=== PATIENT | male | born 1975 | race Caucasian/White ===

== ENCOUNTER 2017-01-26 03:05 | Emergency (ER) | payer BC ==
[~2017-01-26] VITALS: Ht 188 cm; Wt 76.0 kg
[2017-01-26 03:10] VITALS: Ht 188 cm; Wt 76.0 kg
[2017-01-26] MEDS ORDERED: LIDOCAINE 1%/EPI 30 ML INJ INJ STA (03:17)
--- NOTE | 2017-01-26 03:24 | ERD ---
ER Documentation Chief Complaint Chief Complaint bib self, cc: right forearm laceration s/p fall with knife in hand HPI 41-year-old male brought into the emergency department for a laceration on his right volar forearm status post ground level fall with a knife in his hand. Patient denies suicidal ideation, homicidal ideation. States that bleeding is controlled since he put coffee ground in there. ROS All systems reviewed and are negative except as per history of present illness. Medications Home Meds Active Scripts Cephalexin* (Keflex*) 500 Mg Capsule, 500 MG PO QID for 5 Days, CAP Prov:KARLIE BUTTS PA-C 01/26/17 Reported Medications [None] No Conflict Check 03/05/11 Allergies Allergies: Coded Allergies: No Known Drug Allergies (Verified Allergy, 02/27/13) Uncoded Allergies: NONE (Allergy, 03/05/11) PMhx/Soc History of Surgery: No Anesthesia Reaction: No Hx Neurological Disorder: No Hx Respiratory Disorders: No Hx Cardiac Disorders: No Hx Psychiatric Problems: No Hx Miscellaneous Medical Probl: No Hx Alcohol Use: No Hx Substance Use: No Hx Tobacco Use: No Physical Exam Vitals Vital Signs Date Time Temp Pulse Resp B/P Pulse Ox O2 Delivery O2 Flow Rate FiO2 01/26/17 03:10 98.5 105 19 115/73 100 Physical Exam General: WD/WN, in no apparent distress, non-toxic appearing HENT: NC/AT Eyes: Conjunctiva normal Neck: Supple Pulm: Normal labored breathing CV: Good capillary refill GI: Non-distended, no guarding Back: No masses Ext: No clubbing, cyanosis, or edema Neuro: Moves on all fours, no neuro deficits, sensation intact Skin: []cm laceration Psych: Normal mood Results 24 hrs Current Medications Medications (Trade) Dose Ordered Sig/Jack Route PRN Reason Start Time Stop Time Status Last Admin Dose Admin Lidocaine/ Epinephrine (Xylocaine 1%/ Epi (Pf)) 30 ml ONCE STAT INJ 01/26/17 03:17 01/26/17 03:18 DC Diphtheria/ Tetanus/Acell Pertussis (Adacel) 0.5 ml ONCE ONCE IM* 01/26/17 03:30 01/26/17 03:31 DC 01/26/17 03:24 Procedures/MDM : 41-year-old male patient presents to the ER with a superficial laceration on right volar forearm. I had a low suspicion for FB, nerve/tendon/arterial injury, suicidal ideation. In the ED, patient was given TDAP and prepared for wound closure, procedure below. Discussed suture removal in 7-10 days. 2 day wound check. I have given him keflex for prophylaxis since he put coffee grinds in his wounds. neurovascularly intact and hemodynamically stable to be discharged home PROCEDURE NOTE: Consent was obtained. Patient was positioned appropriately. Copious amount of 1 L normal saline was used for irrigation. Wound was cleansed with betaiodine. Approximately 5 cc of lidocaine with epinephrine was used as a local anesthetic. Patient was sterile draped with wound exposed. Wound was closed with good approximation with 10 x 3-0 prolene simple interrupted sutures. Procedure tolerated without complications. Wound dressed with bacitracin and sterile guaze. Departure Diagnosis: Primary Impression: Laceration Condition: Stable KARLIE BUTTS PA-C Jan 26, 2017 03:24
[2017-01-26] MEDS ORDERED: DIPHTH/TET/ACEL PERTUSS (ADULT) 0.5 ML VIAL IM* ONE (03:30)
[2017-01-26] MEDS ORDERED: CEPH-443 PO (04:15)
== END 2017-01-26 04:20 | disposition home or self-care (01) ==
LOC: FTE 03:05
DX: S51.811A Laceration without foreign body of right forearm, initial encounter (principal); W26.0XXA Contact with knife, initial encounter; Y92.9 Unspecified place or not applicable; Z23 Encounter for immunization
CPT/HCPCS: 12001; 90471; 90715; Z7502; Z7610

== ENCOUNTER 2017-02-09 08:54 | Emergency (ER) | payer BC ==
[~2017-02-09] VITALS: Wt 54.5 kg
[~2017-02-09 08:54] MED LIST: CEPH-443 PO
[2017-02-09 09:51] LABS: BASOPHILS % 0.5 % (0.0-2.0); EOSINOPHILS # 0.1 10^3/ul (0.0-0.5); EOSINOPHILS % 1.1 % (0.0-7.0); HEMATOCRIT 43.8 % (42.0-52.0); HEMOGLOBIN 14.8 g/dl (14.0-18.0); LYMPHOCYTES % 38.5 % (15.0-51.0); MEAN CORPUSCULAR HGB CONC 33.8 g/dl (32.0-37.0); MEAN CORPUSCULAR VOLUME 88.7 fl (82.0-101.0); MEAN PLATELET VOLUME 9.6 fl (7.4-10.4); MONOCYTE # 0.7 10^3/ul (0.3-0.9); MONOCYTES % 8.5 % (0.0-11.0); NEUTROPHILS % 51.1 % (39.0-77.0); PLATELET COUNT 216 10^3/UL (140-415); RED BLOOD COUNT 4.94 10^6/ul (4.70-6.10); RED CELL DISTRIBUTION WIDTH 13.1 % (11.5-14.5); WHITE BLOOD COUNT 7.9 10^3/ul (4.8-10.8)
--- NOTE | 2017-02-09 10:01 | RADRPT ---
PROCEDURE: XR Chest. CLINICAL INDICATION: Chest pain. TECHNIQUE: Single frontal view of the chest was obtained. COMPARISON: None FINDINGS: Metallic snaps are identified projecting across the chest. There is a dextroscoliosis at the thorac olumbar junction. The heart is enlarged. The cardiomediastinal silhouette and hilar structures are normal. The pulmonary vasculature is normal. There is a left-sided aorta. The lungs are clear. Ther e is bilateral apical pleural scarring. The costophrenic angles are normal. IMPRESSION: 1. Bilateral apical pleural scarring is identified may be the result of a prior inflammatory process such as TB. 2. Cardiomegaly. 3. Dextroscoliosis of the lower thoracic spine. 4. No evidence of active cardiopulmonary disease. RPTAT:AAJJ Physician Carlito Date Time Electronically viewed and signed by Rudy Rooney Physician on 02/09/2017 10:01 REBECCA/
[2017-02-09 10:11] LABS: ANION GAP 15 (8-16); BLOOD UREA NITROGEN 7 mg/dl (7-20); CALCIUM 9.4 mg/dl (8.4-10.2); CARBON DIOXIDE 26 mmol/L (21-31); CHLORIDE 105 mmol/L (97-110); CREATININE 0.77 mg/dl (0.61-1.24); GLUCOSE 88 mg/dl (70-220); INR 0.92; POTASSIUM 4.3 mmol/L (3.5-5.1); PROTIME 12.4 Sec (12.2-14.2); SODIUM 142 mmol/L (135-144)
[2017-02-09 10:23] LABS: B-TYPE NATRIURETIC PEPTIDE 60 PG/ML (0-125)
[2017-02-09 10:25] LABS: TROPONIN-I < 0.012 ng/ml (0.00-0.12)
[2017-02-09] MEDS ORDERED: ASPI81TA3 PO (11:23)
--- NOTE | 2017-02-09 12:33 | ERD ---
ER Documentation Chief Complaint Chief Complaint suture removal HPI 41-year-old male patient with no significant past medical history presents to the ED for suture removal and chest pain that has been going on for 1 week. Patient reports that he accidentally cut his right arm with a knife and the sutures in place since January [address] Xiao sent him here for his chest pain for further evaluation and treatment. States that the pain is worse with movement and twisting. Denies any trauma. Denies any abdominal pain, nausea, vomiting, diarrhea, wheezing, shortness of breath, cough , fever, chills, increased redness, increased swelling. ROS All systems reviewed and are negative except as per history of present illness. Medications Home Meds Active Scripts Aspirin* (Aspirin* Chew) 81 Mg Tab.chew, 81 MG PO DAILY, #30 TAB.CHEW Prov:JEFFREY MCNEILL PA-C 02/09/17 Cephalexin* (Keflex*) 500 Mg Capsule, 500 MG PO QID for 5 Days, CAP Prov:KARLIE BUTTS PA-C 01/26/17 Reported Medications [None] No Conflict Check 03/05/11 Allergies Allergies: Coded Allergies: No Known Drug Allergies (Verified Allergy, 02/27/13) Uncoded Allergies: NONE (Allergy, 03/05/11) PMhx/Soc History of Surgery: No Anesthesia Reaction: No Hx Neurological Disorder: No Hx Respiratory Disorders: No Hx Cardiac Disorders: No Hx Psychiatric Problems: No Hx Miscellaneous Medical Probl: No Hx Alcohol Use: Yes (occassional) Hx Substance Use: No Hx Tobacco Use: No Smoking Status: Never smoker Physical Exam Vitals Vital Signs Date Time Temp Pulse Resp B/P Pulse Ox O2 Delivery O2 Flow Rate FiO2 02/09/17 08:59 97.1 60 20 118/65 100 Physical Exam Const: [id number], well-nourished. In no acute distress. Head: Atraumatic, normocephalic Eyes: Normal Conjunctiva without injection. No purulent discharge. PERRL. EOMI ENT: Normal external ear. Ear canal without erythema. Tympanic membrane pearly pelayo without effusion or bulging. Nasal canal clear with normal turbinates. Moist oropharynx without tonsillar exudates. Non-erythematous pharynx. Uvula midline. No drooling. No trismus. Neck: Full range of motion. No meningismus. No cervical lymphadenopathy. Resp: Clear to auscultation bilaterally. No wheezing, rhonchi, rales, or crackles. No accessory muscle use. No retractions. Cardio: Regular rate and rhythm. No murmurs, rubs or gallops. Abd: Soft, non tender, non distended. Normal bowel sounds. No palpable masses. No rebound tenderness. No guarding. Skin: No petechiae or rashes. 7 cm linear horizontal laceration noted on the volar aspect of patient's right forearm with no erythema or edema. 10 sutures noted keeping laceration intact. No signs of dehiscence. No fluctuance or induration. No erythema or purulent discharge. Full range of motion of the bilateral wrists and DIP, PIP, MCP joints. Back: No midline tenderness. No CVA tenderness. Ext: No cyanosis, or edema. Neur: Awake and alert. Psych: Normal Mood and Affect Result Diagram: 02/09/1738 02/09/1738 Results 24 hrs Laboratory Tests Test 02/09/17 09:38 White Blood Count 7.910^3/ul Red Blood Count 4.9410^6/ul Hemoglobin 14.8g/dl Hematocrit 43.8% Mean Corpuscular Volume 88.7fl Mean Corpuscular Hemoglobin 30.0pg Mean Corpuscular Hemoglobin Concent 33.8g/dl Red Cell Distribution Width 13.1% Platelet Count 19911^3/UL Mean Platelet Volume 9.6fl Neutrophils % 51.1% Lymphocytes % 38.5% Monocytes % 8.5% Eosinophils % 1.1% Basophils % 0.5% Nucleated Red Blood Cells % 0.0/100WBC Neutrophils # 4.010^3/ul Lymphocytes # 3.010^3/ul Monocytes # 0.710^3/ul Eosinophils # 0.110^3/ul Basophils # 0.010^3/ul Nucleated Red Blood Cells # 0.010^3/ul Prothrombin Time 12.4Sec Prothrombin Time Ratio 1.0 INR International Normalized Ratio 0.92 Activated Partial Thromboplast Time 30.9Sec Sodium Level 142mmol/L Potassium Level 4.3mmol/L Chloride Level 105mmol/L Carbon Dioxide Level 26mmol/L Anion Gap 15 Blood Urea Nitrogen 7mg/dl Creatinine 0.77mg/dl Glucose Level 88mg/dl Calcium Level 9.4mg/dl Troponin I < 0.012ng/ml B-Type Natriuretic Peptide 60PG/ML Procedures/MDM 41 year-old male patient with no significant past medical history presents to the ED complaining of chest pain and a suture removal. Patient is afebrile and nontoxic-appearing. Patient has normal vital signs. Patient was further worked up with CBC, CMP, lipase, UA, EKG, CXR, troponin, BNP. CBC: No leukocytosis. No e/o of systemic infection. No e/o anemia. CMP: No e/o severe acidosis, alkalosis, renal failure, diabetic ketoacidosis, liver disease Troponin < 0.012 BNP 60 PROCEDURE: XR Chest. CLINICAL INDICATION: Chest pain. TECHNIQUE: Single frontal view of the chest was obtained. COMPARISON: None FINDINGS: Metallic snaps are identified projecting across the chest. There is a dextroscoliosis at the thoracolumbar junction. The heart is enlarged. The cardiomediastinal silhouette and hilar structures are normal. The pulmonary vasculature is normal. There is a left-sided aorta. The lungs are clear. There is bilateral apical pleural scarring. The costophrenic angles are normal. IMPRESSION: 1. Bilateral apical pleural scarring is identified may be the result of a prior inflammatory process such as TB. 2. Cardiomegaly. 3. Dextroscoliosis of the lower thoracic spine. 4. No evidence of active cardiopulmonary disease. EKG reviewed and interpreted by Dr. Osorio Rate/Rhythm: [61 bpm, Normal Sinus Rhythm] No ectopy, no ST elevations, normal axis. QRS, ST, T-waves: [No changes consistent w/ acute ischemia] Impression: [No evidence of ischemia or arrhythmia] Low suspicion for acute myocardial infarction, pneumothorax, pneumonia, cardiac tamponade, Xkbax-Runboeebh-Bcdxj Syndrome, Brugada Syndrome, pulmonary embolism , AAA, aortic dissection, thoracic aortic dissection, endocarditis, pericarditis , cocaine-related ischemia, Boerhaave's syndrome, cardiac dysrhythmias, meningitis, intracranial bleed, seizure, stroke, TIA or other emergent conditions. 10 sutures removed of right laceration without difficulty of laceration on right forearm. Patient is neurovascularly intact. No evidence of compartment syndrome, neurologic injury, vascular injury, open joint, tendon laceration, or foreign body. Patient is appropriate for outpatient follow up. This was discussed with supervising physician, Dr. Osorio who agreed with the management and discharge plan. Discharge medications: Aspirin Follow up with primary care physician in 1-2 days for a referral to see a sample book maker for a stress test. Instructed patient to return to the ED sooner for any worsening symptoms. Patient's questions were answered. Patient understood and agreed with discharge plan. Patient discharged stable. Departure Diagnosis: Primary Impression: Chest pain Chest pain type: unspecified Qualified Code: R07.9 - Chest pain, unspecified type Additional Impression: Visit for suture removal Condition: Stable Patient Instructions: Chest Pain, Uncertain Cause, Suture Removal, No Complication Referrals: [facility] YOU HAVE RECEIVED A MEDICAL SCREENING EXAM AND THE RESULTS INDICATE THAT YOU DO NOT HAVE A CONDITION THAT REQUIRES URGENT TREATMENT IN THE EMERGENCY DEPARTMENT. FURTHER EVALUATION AND TREATMENT OF YOUR CONDITION CAN WAIT UNTIL YOU ARE SEEN IN YOUR DOCTORS OFFICE WITHIN THE NEXT 1-2 DAYS. IT IS YOUR RESPONSIBILITY TO MAKE AN APPOINTMENT FOR FOLOW-UP CARE. IF YOU HAVE A PRIMARY DOCTOR --you should call your primary doctor and schedule an appointment IF YOU DO NOT HAVE A PRIMARY DOCTOR YOU CAN CALL OUR PHYSICIAN REFERRAL HOTLINE AT IF YOU CAN NOT AFFORD TO SEE A PHYSICIAN YOU CAN CHOSE FROM THE FOLLOW[facility] [address] [facility]. [facility] [address] [facility]. [facility] [address] [facility] [facility] [address] [facility] [facility] [address] [facility]. [facility]. [address] [facility]. [facility] YOU HAVE RECEIVED A MEDICAL SCREENING EXAM AND THE RESULTS INDICATE THAT YOU DO NOT HAVE A CONDITION THAT REQUIRES URGENT TREATMENT IN THE EMERGENCY DEPARTMENT. FURTHER EVALUATION AND TREATMENT OF YOUR CONDITION CAN WAIT UNTIL YOU ARE SEEN IN YOUR DOCTORS OFFICE WITHIN THE NEXT 1-2 DAYS. IT IS YOUR RESPONSIBILITY TO MAKE AN APPOINTMENT FOR FOLOW-UP CARE. IF YOU HAVE A PRIMARY DOCTOR --you should call your primary doctor and schedule and appointment IF YOU DO NOT HAVE A PRIMARY DOCTOR YOU CAN CALL OUR PHYSICIAN REFERRAL HOTLINE AT . IF YOU CAN NOT AFFORD TO SEE A PHYSICIAN YOU CAN CHOSE FROM THE FOLLOWING [facility] INSTITUTIONS: [facility] [address] [place] [address] [facility] [address] [place] [address] [facility] [address] [place] [address] [facility]SPECIALTIES Additional Instructions: Call your primary care doctor TOMORROW for an appointment during the next 1-2 days for a referral to see a sample book maker. See the doctor sooner or return here if your condition worsens before your appointment time. JEFFREY MCNEILL PA-C Feb 09, 2017 12:33
== END 2017-02-09 11:33 | disposition home or self-care (01) ==
LOC: FTE 08:54
DX: R07.9 Chest pain, unspecified (principal); Z48.02 Encounter for removal of sutures
CPT/HCPCS: 36415; 71010; 80048; 83880; 84484; 85025; 85610; 85730; 93005; Z7502

== ENCOUNTER 2017-10-02 22:26 | Emergency (ER) | END 2017-10-03 01:10 | disposition home or self-care (01) ==